=== PATIENT | male | born 1975 | race Caucasian/White ===

== ENCOUNTER 2025-06-27 09:51 | Outpatient (CLI) | payer BC, SELFPAY ==
--- NOTE | 2025-06-27 10:04 | USCV_ITS ---
EdisonJesus Age: 50 Gender: M : 1975 Exam Date: 06/27/2025 10:20 Ordering Phys: Josiah Ramirez MD Technologist: Exam Location: [facility] [place] Indication: as ai ? bicuspid ao valve BP: 130 / 74 HR: 64 Rhythm: Sinus Technical Quality: Adequate MEASUREMENTS (Male / Female) Normal Values 2D ECHO LV Diastolic Diameter PLAX 5.7 cm 4.2 - 5.9 / 3.9 - 5.3 cm IVS Diastolic Thickness 1.1 cm 0.6 - 1.0 / 0.6 - 0.9 cm IVS Systolic Thickness 1.7 cm LVPW Diastolic Thickness 1.4 cm 0.6 - 1.0 / 0.6 - 0.9 cm LVPW Systolic Thickness 1.8 cm LVOT Diameter 2.4 cm LV Ejection Fraction 2D Teich 52.5 % LV Ejection Fraction MOD 4C 54.1 % LV Ejection Fraction MOD 2C 48.5 % LV Ejection Fraction 2C AL 46.4 % RA Systolic Volume 4C AL 49.9 ml RA Systolic Volume 4C MOD 50.2 ml IVC Diameter 2.0 cm M-MODE LA Ao Ratio MM 0.9 AV Cusp Separation MM 2.3 cm DOPPLER AV Peak Velocity 342.0 cm/s LVOT Peak Velocity 98.0 cm/s AV Area Cont Eq vti 1.9 cm squared AV Area Cont Eq pk 1.3 cm squared MV Peak Velocity 165.3 cm/s MV Area PHT 3.9 cm squared Mitral E to A Ratio 1.2 TR Peak Velocity 159.0 cm/s TR Peak Gradient 10.1 mmHg PV Peak Velocity 162.0 cm/s FINDINGS Left Ventricle Mild diffuse hypokinesia of the left ventricle with an ejection fraction of around 45 to 50%. Mildly dilated left ventricle. Right Ventricle Mildly dilated right ventricle with possibly normal ejection fraction Right Atrium Mildly dilated right atrium Left Atrium Normal left atrial size. Mitral Valve Mild mitral valve regurgitation. Aortic Valve Moderate eccentric aortic regurgitation. Possible bicuspid aortic valve with moderate aortic valve calcification. Moderate aortic valve stenosis, mean gradient 13.3 mmHg, PETER 1.9 cm squared. Peak velocity across the aortic valve is 2.9 m/m/s with a peak gradient of 30 mm of Hg. Tricuspid Valve No gross abnormalities noted Pulmonic Valve Pulmonic valve not well visualized. Pericardium No pericardial effusion. Aorta Normal aortic annulus size. IVC Normal inferior vena cava. CONCLUSIONS Mild diffuse hypokinesia of the left ventricle with an ejection fraction of around 45 to 50%. Mildly dilated left ventricle. Mildly dilated right ventricle with possibly normal ejection fraction. Mildly dilated right atrium. Mild mitral valve regurgitation. Moderate eccentric aortic regurgitation. Possible bicuspid aortic valve with moderate aortic valve calcification. Moderate aortic valve stenosis, mean gradient 13.3 mmHg, PETER 1.9 cm squared. Peak velocity across the aortic valve is 2.9 m/m/s with a peak gradient of 30 mm of Hg. There is no pericardial effusion. There are no intracardiac masses. There is no pericardial effusion. There are no intracardiac masses. No similar previous studies are available for comparison Consider [facility], to better evaluate the aortic valve Dr Kelley Beard MD FAC (Electronically Signed) Final Date: 30 June 2025 09:38 S
== END 2025-06-27 09:52 | disposition home or self-care (01) ==
LOC: RAD 09:55
PROVIDERS: PCP Family Medicine; Visit Provider Family Medicine
DX: R01.1 Cardiac murmur, unspecified (principal)
CPT/HCPCS: 93306